=== PATIENT | male | born 1940 | race Caucasian/White ===

== ENCOUNTER → 2016-05-28 | Outpatient (CLI) | payer OTHER | LOC: MMPC 09:00 | PROVIDERS: ATTEND Family Medicine | DX: R19.4 Change in bowel habit (principal); K64.8 Other hemorrhoids | CPT/HCPCS: 99213; G0463 ==

== ENCOUNTER → 2016-06-03 | Outpatient (CLI) | payer OTHER | LOC: MMPC 11:11 | PROVIDERS: ATTEND Surgery | DX: K62.89 Other specified diseases of anus and rectum (principal) | CPT/HCPCS: 99201; G0463 ==

== ENCOUNTER 2016-06-16 07:52 | Day surgery (SDC) | payer OTHER ==
[~2016-06-16 07:52] MED LIST: LIDOCAINE W/ SODIUM BICARB 0.5 ML SYR ONE; Lactated Ringers 1,000 ML PRIMARY IV ONE; MIDAZOLAM 5 MG/1 ML ONE; fentaNYL Inj 100 MCG/2 ML VIAL ONE
--- NOTE | 2016-06-16 08:46 | GEN.OPNOTE ---
Colonoscopy Procedure Note Surgery Date: 06/16/16 Preoperative Diagnosis: Screening for colon cancer Postoperative Diagnosis: Rectal polyp at 10 cm Procedure: Colonoscopy with snare polypectomy Surgeon: Isaiah Chapin MD Anesthesia Provider: Sudarshan Benavidez CRNA Anesthesia Type: MAC Findings: Prep : Excellent Cecum : Scope advanced all way cecum. Normal cecal anatomy identified. Patient normal appearance cecum Ascending : Ascending colon was free from disease Transverse : Transverse colon and no polyps tumors or cancers Sigmoid : Descending and sigmoid colon free from disease Rectum : Patient has sessile polyp roughly between 10 -5 cm. Remove with snare polypectomy Digital Rectal Exam : Prostate smooth no rectal masses could be appreciated. I do not see any evidence of thrombosed hemorrhoids are anal fissures A lubricated flexible colonoscope was inserted and passed to the blind end of the cecum.
[2016-06-16 09:41] VITALS: RESP 15
[2016-06-16 09:43] VITALS: TEMP 97.6
== END 2016-06-16 09:36 | disposition home or self-care (01) ==
LOC: SDSC 07:52
PROVIDERS: ATTEND Surgery
DX: K62.1 Rectal polyp (principal)
CPT/HCPCS: 45385; J3010; J2250; J7120

== ENCOUNTER 2016-12-03 02:22 | Emergency (ER) | payer OTHER ==
[2016-12-03 02:38] VITALS: RESP 20; TEMP 97.4
[2016-12-03] MEDS ORDERED: ONDANSETRON 4 MG/2 ML VIAL IVP ONE (02:42)
[2016-12-03] MEDS ORDERED: KETOROLAC 15 MG/1 ML VIAL IVP ONE (02:42)
[2016-12-03] MEDS ORDERED: Sodium Chloride 0.9% 1,000 ML PRIMARY IV ONE (02:42)
--- NOTE | 2016-12-03 02:49 | PDOC ---
Gen Adult / Medical Screen HPI - General Chief Complaint: General Medical Stated Complaint: BILATERAL HIP AND KNEE PAIN Date Seen by Provider: 12/03/16 Time Seen by Provider: 02:43 Source: POSITIVE: Patient Exam Limitations: POSITIVE: No limitations Nurse's Notes Reviewed & Considered: Yes - Indicators Temperature Between 95 and 101 Degrees: Yes Respirations Between 12 and 20: Yes Blood Pressure Between 100-165 (sys) and 60-100 (barker): No (138/113) Pulse Range Between 60-105 (100 for age > 60 years): Yes Severe Pain (Greater than 5/10 Reported): Yes (hip pain) Chest or Abdominal Pain: No Inability to Walk: No Pt Reports Active High Risk Cond. (TB/Hepatitis/HIV/Chemo): No Abnormal Mental Status: No - History of Present Illness Initial Comments: This is a very pleasant 76-year-old male complaining of bilateral hip pain. Patient has bilateral hip pain that is focused in his groin left worse than right. He states that a week ago he was cleaning out an old arrived with a lot of mouse droppings and is concerned that he may have gotten exposed to an infective agent such as hantavirus. He has been having a sensation of swelling in his groin bilaterally left worse than right, and a general ill feeling for approximately one week. Symptoms have been escalating since he cleaned out his garage. He denies any headache, no fever chills or sweats, no nausea vomiting or diarrhea, no chest pain or shortness of breath, no cough. Body Location Affected: REPORTS: Lower Extremity (L), Lower Extremity (R) Timing: REPORTS: Constant, Getting Worse Duration: <1 week Similar Symptoms Previously: No Recent Care Received: REPORTS: Denies Any Prior Injuries Related to Current Complaint?: No - Patient Home Medications Home Medications: Home Medications Hydrochlorothiazide 25 mg ORAL QD #90 tab 01/26/16 Hydrocortisone Acetate [Micort-Hc] 28.4 gm RC TID #1 tube 06/04/16 Atenolol 1 tab PO DAILY #90 tab 07/28/16 - Patient Allergies Allergies/Adverse Reactions: Allergies Allergy/AdvReac Type Severity Reaction Status Date / Time No Known Allergies Allergy Verified 06/16/16 08:01 Past Medical History - heen HEENT History: Hard of Hearing, Deaf, Meniere's Disease Additional HEENT History: RIGHT DEAFNESS Cardiovascular History: Hypertension, Hyperlipidemia Respiratory History: Denies History Gastrointestinal History: Denies History Genitourinary History: Denies History Endocrine History: Denies History Musculoskeletal History: Denies History Prosthesis or Implant: No Neurological History: Denies History Blood Disorders: Denies History Psychiatric History: Denies History History of Sexually Transmitted Diseases: No Male Reproductive History: Denies History Cancer History: Other (please comment) In Past Year Been Physically Harmed or Verbally Threatened: No History of MDRO: No History of Other Communicable Diseases: No Tobacco Use: Never Smoker Alcohol Use: None Substance Use Type: None Previous Surgical History: Yes Type / Date of Surgery: BILAERAL RCR/BILATERAL KNEE SCOPE/ Tonsils, appy, right inner ear 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 but severe vertigo resolved ([facility]); total prostatectomy Anesthesia Reactions: No Malignant Hyperthermia: No Significant Family History: No pertinent family hx ROS - Limitations ROS Limitations: No Limitations Constitution: REPORTS: Denies Symptoms Cardiovascular: REPORTS: Denies Cardiac Symptoms Respiratory: REPORTS: Denies Resp Symptoms Neurological: REPORTS: Denies Neuro Symptoms Gastrointestinal: REPORTS: Denies GI Symptoms Endocrine: REPORTS: Denies Symptoms Musculoskeletal: REPORTS: Joint Pain (Bilateral hip pain), Muscle Aches Genitourinary: REPORTS: Denies Symptoms Eyes: REPORTS: Denies Symptoms ENT: REPORTS: Denies Symptoms Skin: REPORTS: Denies Skin Symptoms Lympathic: REPORTS: Denies Lympathic Symptoms Immunologic: POSITIVE: Denies Symptoms Psychiatric: POSITIVE: Denies Psych Symptoms Gen Adult/Medical Screen Exam - General Appearance General Appearance: POSITIVE: Alert, Cooperative, No Acute Distress, No Evidence of Trauma - HEENT HEENT: POSITIVE: Head Inspection Nml, Eyes Inspection Nml, Ears Inspection Nml, Nose Inspection Nml, Oral/Dental Inspect. Nml, Pharynx Inspect. Nml, PERRL, EOMI - Pupils Pupil Size: 5 mm: Bilateral - Neck Neck: POSITIVE: Normal Inspection, Thyroid Normal - Respiratory Respiratory: POSITIVE: No Respiratory Distress, Breath Sounds Normal, Chest Non- Tender - Cardiovascular Cardiovascular: POSITIVE: Regular Rate & Rhythm, No Murmur, No Gallop, PMI Normal - Abdomen Abdomen: Soft: (All Quadrants), Normal Bowel Sounds: (All Quadrants), Denies Tenderness: (All Quadrants), No Splenomegaly: (All Quadrants), No Hepatomegaly: (All Quadrants), No Guarding: (All Quadrants), No Rebound: (All Quadrants), No Palpable Pulse: (All Quadrants), No Palpabale Mass: (All Quadrants), No Distention: (All Quadrants), No Rigidity: (All Quadrants) - Back Back: POSITIVE: Normal Inspection - Neurological / Psychological Mental Status: POSITIVE: Mood Normal, Affect Normal Orientation: POSITIVE: Oriented x 3 - Skin Skin: POSITIVE: Normal Color, Warm, Dry, No Rash - Extremities Extremity: Normal Inspection: (All Extremities), Pelvis Stable: (All Extremities ), Tender: (RLE), (LLE) (bilateral groin) Procedures - Laceration/Wound Repair Did patient have a laceration repair: No Gen Adlt/Medical Scrn Progress - Results Reviewed by me Xrays/CTs/US Reviewed by me: Yes Discussed with Radiologist: Yes Lab Results Reviewed: Yes Lab Results:: Laboratory Results 12/03/16 Range/Units 02:50 WBC 6.98 (4.8-10.8) 10^3/uL RBC 4.34 L (4.70-6.10) 10^6/uL Hgb 13.2 L (14.0-18.0) g/dL Hct 37.5 L (42.0-52.0) % MCV 86.4 (80-90) FL MCH 30.4 (27-31) PG MCHC 35.2 (33-37) g/dL RDW Std Deviation 38.5 L (39-50) fL RDW Coeff of Yandel 12.5 (11.5-14.5) % Plt Count 202 (140-350) 10*3/uL MPV 10.5 (7.4-12.2) FL Immature Gran % (Auto) 0.1 (0-5) % Neut % (Auto) 60.3 (50-80) % Lymph % (Auto) 25.6 (10-50) % Knox % (Auto) 8.9 (5-15) % Eos % (Auto) 4.0 (0-8) % Baso % (Auto) 1.1 H (0-1) % Immature Gran # (Auto) 0.01 10*3/UL Neut # (Auto) 4.20 10*3/UL Lymph # (Auto) 1.79 10*3/uL Knox # (Auto) 0.62 (0.3-0.8) 10*3/UL Eos # (Auto) 0.28 10*3/UL Baso # (Auto) 0.08 10*3/UL WBC Morphology Comment Normal morphology (NORM) Plt Morphology Comment Normal morphology (NORM) RBC Morph Comment Normal morphology (NORM) ESR Pending Sodium 139 (135-145) meq/L Potassium 3.5 L (3.8-5.2) meq/L Chloride 105 (98-112) meq/L Carbon Dioxide 23 (23-33) meq/L Anion Gap 11 (5-20) BUN 28 H (7-22) mg/dL Creatinine 1.1 (0.70-1.50) mg/dL Estimated GFR (>60 ml/min/1.73m(2)) BUN/Creatinine Ratio 25.45 H (6-20) Glucose 106 (78-110) mg/dL Calculated Osmolality 293.0 H (267-292) mOsm/kg Calcium 9.2 (8.7-10.7) mg/dL Magnesium 2.0 (1.6-2.4) mg/dL Total Bilirubin 0.5 (0.3-1.2) mg/dL AST 20 L (21-57) IU/L ALT 28 (21-72) IU/L Alkaline Phosphatase 61 (38-126) IU/L C-Reactive Protein 0.9 (0.0-0.9) mg/dL Total Protein 6.6 (6.1-8.0) g/dL Albumin 4.1 (3.5-4.8) g/dL Globulin 2.6 (2.50-4.10) g/dL Albumin/Globulin Ratio 1.50 (1.3-2.0) mg/g Ur Collection Type Clean catch urine Urine Color Yellow Urine Clarity Clear (CLEAR) Urine pH 5.0 (5.0-8.5) Ur Specific Barbeau 1.025 (1.005-1.030) Urine Protein Negative (NEG) mg/dl Urine Glucose (UA) Negative (NEG) mg/dL Urine Ketones Trace (NEG) Urine Occult Blood Small H (NEG) Urine Nitrate Negative (NEG) Urine Bilirubin Negative (NEG) Urine Urobilinogen 0.2 (0.2) EU/dL Ur Leukocyte Esterase Negative (NEG) Urine RBC Rare (NONE) /hpf Urine WBC Rare (NONE) Ur Squamous Epith Cells None (NONE) Ur Renal Epithelial Cell None (NONE) Urine Crystals None Urine Bacteria Rare (NONE) Urine Casts Moderate (NONE) Urine Mucus Many (NONE) Urine Trichomonas None (NONE) Urine Yeast None (NONE) Ur Culture Indicated? Culture not set - Patient's Progress Pain Medication Addressed: POSITIVE: Yes Status: POSITIVE: Improved MDM / ED Course: Patient was examined, blood drawn and sent to the lab for studies, radiographic examinations were obtained. Findings: CBC shows a normal white count. Comprehensive metabolic panel is unremarkable. CRP is normal. Urinalysis is negative. X-ray of his bilateral hips shows degenerative changes present but no acute abnormalities. Chest x- ray shows no acute cardiopulmonary decompensation. Assessment: Hip pain, unknown etiology. Plan: Discharge, muscle relaxants and nonsteroidal anti-inflammatories, [place] for breakthrough pain. Follow up with primary care physician. - Consult Counseled: POSITIVE: Patient, RE: Lab Results, RE: Radiology Results, RE: DX, RE : Need for F/U Patient Care Time - Estimated PCT Patient Care Time (In Minutes): 30 Vital Signs - Recent Vital Signs Vital Signs: Vital Signs (Last 8 hours) Temp Pulse Resp BP Pulse Ox 12/03/16 02:28 97.4 F 60 20 138/113 96 - VS Reviewed Vital Signs Reviewed: Yes Discharge Clinical Impression: Arthralgia of hip Discharge Disposition: Discharged to Home Condition: Stable Patient Instructions Given at Discharge: Leg Pain (ED)
[2016-12-03 03:09] LABS: BASOPHILS # (AUTO) 0.08 10*3/UL; BASOPHILS % (AUTO) 1.1 % (0-1); EOSINOPHILS # (AUTO) 0.28 10*3/UL; HEMATOCRIT 37.5 % (42.0-52.0); HEMOGLOBIN 13.2 g/dL (14.0-18.0); LYMPHOCYTES # (AUTO) 1.79 10*3/uL; MEAN CORPUSCULAR HEMOGLOBIN 30.4 PG (27-31); MEAN CORPUSCULAR HGB CONC 35.2 g/dL (33-37); MEAN CORPUSCULAR VOLUME 86.4 FL (80-90); MEAN PLATELET VOLUME 10.5 FL (7.4-12.2); MONOCYTES # (AUTO) 0.62 10*3/UL (0.3-0.8); MONOCYTES % (AUTO) 8.9 % (5-15); NEUTROPHILS % (AUTO) 60.3 % (50-80); RED BLOOD COUNT 4.34 10^6/uL (4.70-6.10)
[2016-12-03 03:11] LABS: BILIRUBIN,URINE NEGATIVE (NEG); CLARITY,URINE CLEAR (CLEAR); COLOR,URINE YELLOW; GLUCOSE, URINE (UA) NEGATIVE (NEG); NITRATE,URINE NEGATIVE (NEG); OCCULT BLOOD,URINE SMALL (NEG); PROTEIN,URINE NEGATIVE (NEG); UROBILINOGEN,URINE 0.2 EU/dL (0.2)
--- NOTE | 2016-12-03 03:11 | EKG ---
[address] [address] Measurements Intervals [place] Rate: 51 P: 7 WI: 151 QRS: -27 QRSD: 112 T: -19 QT: 447 QTc: 424 Interpretive Statements SINUS BRADYCARDIA WITH OCCASIONAL VENTRICULAR PREMATURE COMPLEXES BORDERLINE LEFT AXIS DEVIATION [QRS AXIS < -20] MODERATE INTRAVENTRICULAR CONDUCTION DELAY [110+ ms QRS DURATION] Compared to ECG 12/01/2015 10:47:37 Ventricular premature complex(es) now present Electronically Signed On 12-03-16 08:56:36 MDT by Ranulfo Pulliam MD [email or web address]
[2016-12-03 03:13] LABS: PLATELET MORPHOLOGY COMMENT NORMAL MORPHOLOGY (NORM); RBC MORPHOLOGY COMMENT NORMAL MORPHOLOGY (NORM); WBC MORPHOLOGY COMMENT NORMAL MORPHOLOGY (NORM)
[2016-12-03 03:18] LABS: BUN/CREATININE RATIO 25.45 (6-20); C-REACTIVE PROTEIN 0.9 mg/dL (0.0-0.9); CALCIUM 9.2 mg/dL (8.7-10.7); SERUM ALBUMIN 4.1 g/dL (3.5-4.8)
[2016-12-03 03:23] LABS: RBC,URINE RARE /hpf; URINE SAMPLE TYPE CLEAN CATCH URINE
[2016-12-03 03:24] LABS: BACTERIA,URINE RARE; URINE CASTS MODERATE; WBC,URINE RARE
--- NOTE | 2016-12-03 03:57 | DI ---
HISTORY: Pain. COMPARISON: None. PRELIMINARY REPORT ONLY FINDINGS: No fracture or dislocation. Mild to moderate degenerative change of the bilateral hips. Leija ited evaluation of the lower lumbar spine demonstrates moderate to severe spondylotic change. Multipl e pelvic surgical clips bilaterally. IMPRESSION: 1. No fracture or dislocation. 2. Mild to moderate degenerative change of the bilateral hips. 3. Moderate to severe spondylotic change.
--- NOTE | 2016-12-03 03:58 | DI ---
HISTORY: Irregular heart. COMPARISON: None. PRELIMINARY REPORT ONLY FINDINGS: Normal cardiomestiastinal silhouette. No consolidation, effusion or pneumothorax. Osseous s tructures normal. IMPRESSION: 1. No acute cardiopulmonary abnormality.
[2016-12-03 06:07] LABS: ERYTHROCYTE SEDIMENTATION RATE 8 MM/HR (0-15)
== END 2016-12-03 04:18 | disposition home or self-care (01) ==
LOC: ER 02:22
DX: M25.551 Pain in right hip (principal); M25.552 Pain in left hip; I10 Essential (primary) hypertension; E78.5 Hyperlipidemia, unspecified; R10.32 Left lower quadrant pain; R10.31 Right lower quadrant pain; H81.01 Meniere's disease, right ear
CPT/HCPCS: 71020; 73521; 80053; 81001; 81003; 83735; 85025; 85652; 86140; 93005; 93010; 96361; 96374; 96375; 99283 ×2; J1885; J2405; J7030

== ENCOUNTER → 2016-12-08 | Outpatient (CLI) | payer OTHER | LOC: MMPC 09:00 | PROVIDERS: ATTEND Family Medicine | DX: M25.551 Pain in right hip (principal); M25.552 Pain in left hip; M17.0 Bilateral primary osteoarthritis of knee | CPT/HCPCS: 99213; G0463 ==

== ENCOUNTER 2018-03-21 06:13 | Observation (INO) ==
[~2018-03-21 06:13] MED LIST changes: +BUPIVACAINE 0.5% W/EPI MPF -30 ML VIAL IV ONE; +LIDOCAINE 2%/ EPI 1:200,000 - 20 ML VIAL ONE; +LIDOCAINE W/ SODIUM BICARB 0.5 ML SYR SUBD ONE; +Lactated Ringers 1,000 ML PRIMARY IV SCH; +Nasal Sanitizer POPSWAB ampule 3 AMP (Nozin) PREOP DOSE ENOS SCH; +ceFAZolin Inj 2gm (Premix) 2 GM/50 ML BAG IV ONE; -fentaNYL Inj 100 MCG/2 ML VIAL ONE; +fentaNYL Inj 250 MCG/5 ML VIAL ONE
[2018-03-21] MEDS ORDERED: BUPIVACAINE SPINAL 7.5 MG/1 ML - 2 ML IV ONE (06:20)
[2018-03-21] MEDS ORDERED: EPINEPHrine Inj (1:1,000) 1 mg/ml amp ONE (06:20)
[2018-03-21 06:23] LABS: BILIRUBIN,URINE NEGATIVE (NEG); CLARITY,URINE CLEAR (CLEAR); COLOR,URINE YELLOW (Y); GLUCOSE, URINE (UA) NEGATIVE (NEG); OCCULT BLOOD,URINE SMALL (NEG); PROTEIN,URINE NEGATIVE (NEG); UROBILINOGEN,URINE 0.2 EU/dL (0.2)
[2018-03-21 06:28] LABS: RBC,URINE 0 /hpf; URINE SAMPLE TYPE CLEAN CATCH URINE; WBC,URINE 0-1
[2018-03-21] MEDS ORDERED: LIDOCAINE HCL 2 % 10 ML JELLY URO-JECT TOPICAL ONE (07:01)
[2018-03-21] MEDS ORDERED: Sodium Chloride 0.9% vial 40 ML ONE (07:02)
[2018-03-21] MEDS ORDERED: BACITRACIN 50,000 UNIT VIAL IRRIG ONE (07:02)
[2018-03-21] MEDS ORDERED: BUPivacaine Inj 0.5% PF (5mg/ml) 30ml vial ONE (07:34)
[2018-03-21] MEDS ORDERED: GLYCOPYRROLATE 0.2 MG/1 ML VIAL ONE (07:40)
[2018-03-21] MEDS ORDERED: Ketorolac Inj 30 MG, Morphine Inj (Ortho Cocktail) 5 MG, BUPivacaine Inj 0.25% PF 150 MG SPLASH ONE ×3 (07:45)
[2018-03-21] MEDS ORDERED: TRANEXAMIC ACID 1,000 MG / 10 ML VIAL ONE ×2 (08:04→08:05)
[2018-03-21] MEDS ORDERED: MIDAZOLAM HCL 2 MG/2 ML VIAL ONE (08:18)
[2018-03-21] MEDS ORDERED: SUCCINYLCHOLINE CHLORIDE 20 MG/1 ML - 10 ML ONE (08:18)
[2018-03-21] MEDS ORDERED: Lactated Ringers 1,000 ML PRIMARY IV ONE (08:36)
[2018-03-21] MEDS ORDERED: BUPivacaine Liposome/PF (Exparel) Inj 20ml vial INFIL ONE (08:55)
[2018-03-21 10:48] LABS: Hematocrit [HCT] 34.9 % (42.0-52.0); Hemoglobin [HGB] 11.9 g/dL (14.0-18.0)
--- NOTE | 2018-03-21 10:55 | DI ---
XR KNEE 1 OR 2 VWS 03/21/2018 10:35 AM History: [facility] [place] DI ^post op Comparison: Left knee x-ray 03/29/2012. Findings: Portable AP and lateral views of the left knee are submitted. Overlying bandaging obscures fine anatomic detail. The patient is status post total knee arthroplasty. There is no evidence of acevedo rdware fracture, loosening, or malalignment. No acute osseous abnormality is noted. There is gas in t he soft tissues, an expected finding in the immediate postoperative timeframe. Impression: Status post left total knee arthroplasty.
[2018-03-21] MEDS ORDERED: MORPHINE SULFATE 2 MG/1 ML IVP PRN (11:32)
[2018-03-21] MEDS ORDERED: BETAMETHASONE DIPROPIONATE TOPICAL PRN (11:32)
[2018-03-21] MEDS ORDERED: KETOROLAC 15 MG/1 ML VIAL IVP PRN (11:32)
[2018-03-21] MEDS ORDERED: LIDOCAINE HCL 2 % 10 ML JELLY URO-JECT TOPICAL PRN (11:32)
[2018-03-21] MEDS ORDERED: ONDANSETRON 4 MG/2 ML VIAL IVP PRN (11:32)
[2018-03-21] MEDS ORDERED: ePHEDrine Inj 50 MG/ML AMP ONE (11:35)
[2018-03-21] MEDS ORDERED: MORPHINE SULFATE 2 MG/1 ML IV PRN (11:42)
[2018-03-21] MEDS ORDERED: MORPHINE SULFATE 10 MG/1 ML IV PRN (11:42)
[2018-03-21] MEDS ORDERED: MORPHINE SULFATE 4 MG/1 ML IV PRN (11:42)
[2018-03-21] MEDS ORDERED: Sodium Chloride 0.9% 1,000 ML PRIMARY IV ONE (11:49)
[2018-03-21] MEDS: ATENOLOL 25 MG TABLET PO SCH (11:55)
--- NOTE | 2018-03-21 13:52 | CRNA.PROCE ---
Nerve Block Documentation - - Type of Nerve Block Used: Left Adductor Canal Nerve Block Anesthesia Time - Other Weight: 92.533 kg Height: 5 ft 10 in Body Mass Index (BMI): 29.2
--- NOTE | 2018-03-21 13:54 | CRNA.PROCE ---
Central Neuraxis Block Placemt - - Safety Measures: Time Out Taken, Site Verified - - Type of Block: Subarachnoid Reason for Block: Surgical Moniters Used During Block: EKG, SPO2, NIBP Sedation Used - Enter Amount Used in Comment Field: Midazolam (mg): Yes (2), Fentanyl (mcg): Yes (50) Positioning: Sitting Skin Prep Used: ChloroPrep Draped: Yes Skin Infiltration - Enter Amount Used in Comment Field: 1% Xylocaine with Bicarb (mL): Yes (.5cc) Introducer User: None Spinal Needle Used: 22 Lelo 80 mm Local Anesthetic - Enter Amount Used in Comment Field: 0.75 % Bupivacaine with Dextrose (ml): Yes (2cc) Additive Used - Enter Amount Used in Comment Field: Fentanyl (mcg): Yes (.2), Epinephrine 1:1000 Needle Rinse (mL): Yes (.2) Bioclusive Dressing Applied: No Anesthesia Time - Other Weight: 92.533 kg Height: 5 ft 10 in Body Mass Index (BMI): 29.2
--- NOTE | 2018-03-21 13:55 | CRNA.PROGR ---
Anesthesia Time - Procedure/Recovery Time Start Date: 03/21/18 Anesthesia : Time In: 07:42 Anesthesia : Time Out: 10:16 - Other Weight: 92.533 kg Height: 5 ft 10 in Body Mass Index (BMI): 29.2 Physical Status: P2 Anesthesia Type: Spinal Block, MAC (adductor block, sab, mac in OR)
[2018-03-21] MEDS: Lactated Ringers 1,000 ML PRIMARY IV SCH (14:41)
[2018-03-21] MEDS: oxyCODONE/APAP 7.5/325 Tab 1 TAB TAB PO PRN ×2 (16:10→22:07)
[2018-03-21] MEDS: ceFAZolin Inj 2gm (Premix) 2 GM/50 ML BAG IV SCH ×2 (16:11→23:42)
[2018-03-21] MEDS: DOCUSATE 100 MG CAPSULE PO SCH (20:49)
[2018-03-22] MEDS: Lactated Ringers 1,000 ML PRIMARY IV SCH ×2 (00:50→08:35)
[2018-03-22 05:52] LABS: Hemoglobin [HGB] 10.6 g/dL (14.0-18.0); MEAN CORPUSCULAR HEMOGLOBIN 29.4 PG (27-31); MEAN CORPUSCULAR HGB CONC 33.1 g/dL (33-37); MEAN CORPUSCULAR VOLUME 88.9 FL (80-90); MEAN PLATELET VOLUME 10.4 FL (7.4-12.2); RED BLOOD COUNT 3.6 10^6/uL (4.70-6.10)
[2018-03-22 06:09] LABS: BLOOD UREA NITROGEN 31 mg/dL (7-22); BUN/CREATININE RATIO 22.14 (6-20)
[2018-03-22] MEDS ORDERED: Esomeprazole DR 20mg Capsule PO SCH (07:00)
[2018-03-22] MEDS ORDERED: HYDROCHLOROTHIAZIDE 25 MG TABLET PO SCH (07:00)
[2018-03-22 08:00] VITALS: BP 122/60; RESP 16; TEMP 97; O2SAT 93
[2018-03-22] MEDS: DOCUSATE 100 MG CAPSULE PO SCH (08:35)
[2018-03-22] MEDS: ATENOLOL 25 MG TABLET PO SCH (08:35)
[2018-03-22] MEDS: oxyCODONE/APAP 7.5/325 Tab 1 TAB TAB PO PRN (08:36)
--- NOTE | 2018-03-22 08:47 | ORTHO.PROG ---
Last Taken Vital Signs: Vital Signs - Last Taken Temperature 97 F 03/22/18 07:59 Pulse Rate 76 03/22/18 07:59 Respiratory Rate 16 03/22/18 07:59 Blood Pressure 122/60 03/22/18 07:59 Pulse Ox 93 03/22/18 07:59 Subjective: No Pain one episode of urinary incontinence but normal fx since Objective: Abnormal Lab Results (Last 24 Hours) Range/Units 03/21/18 03/22/18 03/22/18 10:44 05:15 05:15 RBC (4.70-6.10) 10^6/uL 3.60 L Hgb (14.0-18.0) g/dL 11.9 L 10.6 L Hct (42.0-52.0) % 34.9 L 32.0 L BUN (7-22) mg/dL 31 H BUN/Creatinine Ratio (6-20) 22.14 H Calcium (8.7-10.7) mg/dL 8.6 L Vital Signs (24 hrs) Temp Pulse Pulse Pulse Resp BP BP 03/22/18 07:59 97 F 76 16 122/60 03/22/18 07:00 58 L 03/22/18 05:38 03/22/18 05:00 98.0 F 56 L 20 133/54 03/22/18 00:24 98.6 F 58 L 18 110/57 03/21/18 20:05 97.6 F 53 L 18 122/61 03/21/18 19:00 16 03/21/18 17:00 98 F 49 L 16 112/65 03/21/18 15:00 03/21/18 13:00 97.0 F 43 L 16 111/55 03/21/18 11:45 97.3 F 42 L 14 143/66 03/21/18 11:33 97.3 F 42 L 42 L 12 143/66 03/21/18 11:25 97.3 F 40 L 12 145/79 03/21/18 11:10 97.3 F 40 L 12 148/69 03/21/18 10:55 36 L 16 138/83 03/21/18 10:40 38 L 16 124/78 03/21/18 10:25 37 L 16 126/84 03/21/18 10:10 97.1 F 37 L 16 142/69 Pulse Ox 03/22/18 07:59 93 03/22/18 07:00 03/22/18 05:38 94 03/22/18 05:00 94 03/22/18 00:24 95 03/21/18 20:05 94 03/21/18 19:00 03/21/18 17:00 95 03/21/18 15:00 94 03/21/18 13:00 96 03/21/18 11:45 99 03/21/18 11:33 99 03/21/18 11:25 99 03/21/18 11:10 96 03/21/18 10:55 100 03/21/18 10:40 100 03/21/18 10:25 100 03/21/18 10:10 100
[2018-03-22] MEDS ORDERED: ENOXAPARIN SODIUM 30 MG/0.3 ML SYRINGE SUBCUT SCH (09:00)
[2018-03-22] MEDS ORDERED: ENOXAPARIN SODIUM 40 MG/0.4 ML SYRINGE SUBCUT SCH (09:00)
--- NOTE | 2018-03-22 10:28 | CRNA.PROGR ---
Anesthesia Note - Progress Notes Anesthesia Progress Note: Pt is being discharged on first p/o day, and looks, feels good. DUTCH Yancey
--- NOTE | 2018-03-22 11:33 | PTI REPORT ---
Thank you for the referral of Ranulfo Dawson. He was seen on 03/21/18 for an inpatient evaluation status post left total knee replacement. SUBJECTIVE: The patient is a 77-year-old male. The patient reports initially his goal was to go home today and he did receive the approval from Dr. Ambrose; however, due to his last experience with his right total knee several months ago, he believes that he should stay in the hospital at least one night. He states he is not having any knee pain, but has no sense of bladder control and feels like he has wet himself. PAST MEDICAL HISTORY: Past medical history can be found in the patient's medical record. OBJECTIVE FINDINGS: Pain: The patient denies any pain. He was able to perform an independent straight leg raise with extensor lag. There was no inspection able to be made on his incision due to the post op bandage. Range of motion: The patient is able to tolerate 4 degrees beyond full extension and 90 degrees of flexion passively in the CPM machine. Bed mobility/Transfers: The patient is able to perform bed mobility and transfers with stand by to contact guard assistance. Ambulation: The patient demonstrated the ability to ambulate 10 feet x2 with front wheeled walker that he brought from home, gait belt, contact guard assistance, and weight-bearing as tolerated on that left lower extremity. ASSESSMENT: Problem List: Pain in the left knee Decreased passive and active range of motion in the left knee Decreased strength in the left knee Short-Term Goals: To be met by discharge from inpatient: Patient will be able to transfer from bed to stand independently. Patient will be able to ambulate 100 feet with walker, weight-bearing as tolerated. Patient will be able to ascend and descend five stairs with walker, weight- bearing as tolerated. Long-Term Goals: To be met following discharge from inpatient: Patient will be seen by outpatient physical therapy. TREATMENT PLAN: Patient will be seen B.I.D during the week and one time per day over the weekend as an inpatient to address the above goals and objectives. INITIAL TREATMENT: Treatment today consisted of the initial evaluation. The patient performed bed mobility and ambulated 10 feet within his room. The patient performed toileting ADLs with verbal cues for safety with a walker. The patient was issued CPM pads and being fitted for the CPM machine from -4 degrees of extension to 90 degrees of flexion. We discussed the patient staying at least overnight due to not having full bladder control at this time. GARRETT
--- NOTE | 2018-03-22 14:23 | PDOC(PROG) ---
Progress Note -: Vital Signs - Last Taken Temperature 97 F 03/22/18 07:59 Pulse Rate 76 03/22/18 07:59 Respiratory Rate 16 03/22/18 07:59 Blood Pressure 122/60 03/22/18 07:59 Pulse Ox 93 03/22/18 07:59 Laboratory Results 3 03/22/18 03/22/18 05:15 05:15 WBC 6.29 RBC 3.60 L Hgb 10.6 L Hct 32.0 L MCV 88.9 MCH 29.4 MCHC 33.1 RDW Std Deviation 41.8 RDW Coeff of Yandel 13.3 Plt Count 184 MPV 10.4 Sodium 137 Potassium 3.8 Chloride 102 Carbon Dioxide 28 Anion Gap 7 BUN 31 H Creatinine 1.4 BUN/Creatinine Ratio 22.14 H Glucose 110 Calculated Osmolality 291.0 Calcium 8.6 L Ortho Progress Note - Postop Day 1 - Taking PO pain medication - Tolerating regular diet - No Rodriguez - voiding without difficulty - Dressing Clean/Dry and intact - Ambulating Plan: - Discharge home once cleared by Physical Therapy
--- NOTE | 2018-03-22 15:15 | PT AM DAY ---
Diagnosis : Left Total Knee Arthroplasty AM - Physical Therapy S: The patient states he is feeling quite well. O: The patient ambulated to the therapy department via walker. He received an application of moist heat pack x15 minutes including set up to the left knee. He was independent and had good quad control of that left lower extremity. We did reinforce his dressings as he did have some bleeding in the superior portion of his incision, but it had stopped. We replaced the Silverlon dressing and it was reinforced with Coban and we reapplied the Coleman wrap. He was independent with his transfers and stair activities today. He demonstrated 0 degrees of extension to 100 degrees of knee flexion in his dressings. A: The patient would probably be appropriate for discharge anytime relatively soon. P: Continue seeing patient BID during the week and one time per day over the weekend until discharge. MTDD
--- NOTE | 2018-03-22 15:23 | OTI REPORT ---
Thank you for the referral of Ranulfo Dawson. He was seen on 03/22/18 for an occupational therapy inpatient evaluation status post left total knee arthroplasty. SUBJECTIVE: The patient is a 77-year-old male who is being seen secondary to undergoing a total knee replacement. Prior to admission he was independent with all ADLs. He has a higher toilet, a shower chair, and all adaptive devices from a previous surgery. PAST MEDICAL HISTORY: Past medical history can be found in the patient's medical record. OBJECTIVE FINDINGS: Bed mobility: The patient was able to come from supine to sit independently. Activities of daily living: The patient was able to sit edge of bed and don his clothes independently. He did need cues to don his left side first. The patient was able to don socks and shoes independently. Transfers: The patient required stand by assist to transfer from sit to stand. ASSESSMENT: Overall the patient did very well. He was observed doing very well with lower extremity dressing, functional transfers, and balance while completing ADLs. Occupational Therapy Goals: To be met by discharge from inpatient: Patient will be independent and safe with all functional activities and ADLs. TREATMENT PLAN: Patient will be discharged from OT secondary to meeting all goals. INITIAL TREATMENT: Treatment today consisted of the initial evaluation activities only. GARRETT
--- NOTE | 2018-03-28 13:01 | ORTHO.DC ---
Discharge Summary Admitting Diagnosis: knee arthritis Discharge Diagnosis: knee arthritis Discharge Medications: Discharge Medications atenolol 25 mg tablet 25 mg PO DAILY #90 tab 07/01/17 [Rx] betamethasone dipropionate 0.05 % topical cream 1 applic TOPICAL BID PRN #45 g 07/01/17 [Rx] hydrochlorothiazide 25 mg tablet 25 mg PO QD #90 tab 07/01/17 [Rx] Aspirin [Chanel Chewable Aspirin] 81 mg PO DAILY 10/16/17 [History] Blood Sugar Diagnostic [Contour Test Strip] 0 ea .ROUTE .MEDSUPPLY 10/16/17 [History] Blood-Glucose Meter [Contour Next Ez] 0 ea .ROUTE .MEDSUPPLY 10/16/17 [History] Ferrous Sulfate [Iron] 1 tab PO DAILY 10/16/17 [History] Vitamin B Complex [B Complex] 100 mg PO DAILY 10/16/17 [History] mupirocin 2 % nasal ointment 1 applic INASL BID #1 g 02/23/18 [Rx] Rivaroxaban [Xarelto] 10 mg PO DAILY 12 Days #12 tab 03/21/18 [Rx] oxyCODONE/APAP 7.5/325 Tab [Percocet 7.5/325 Tab] 1 - 2 ea PO Q4H PRN #20 tab 03/21/18 [Rx] Follow-Up: Ras Ambrose [STAFF PHYSICIAN] - 04/12/18 10:00 am (In [place] with Dr. Goel) MARY ROJO [Primary Care Provider] - As Needed Discharge Instructions Provided to Patient / Family: Knee Replacement (DC) Exam - Vitals Vital Signs: Vital Signs Temperature 97 F Temperature Source Temporal Artery Scan Pulse Rate [Pulse Oximeter] 76 Pulse Rate [Apical] 42 Pulse Rate 36 Respiratory Rate 16 Blood Pressure [Left Arm] 122/60 Blood Pressure 138/83 Pulse Ox 93 Oxygen Flow Rate 2 Oxygen Delivery Method Room Air Height 5 ft 10 in Weight 97.114 kg Quality Measure : VTE - - Patient at Risk for Venous Thromboembolism: No
== END 2018-03-22 10:35 | disposition home or self-care (01) ==
LOC: OR 06:13 → MED/SURG 10:56 → INTOOBSV 10:56 → EDSTATUS 11:30
PROVIDERS: ADMIT Orthopaedic Surgery; ATTEND Orthopaedic Surgery